=== PATIENT | male | born 1970 ===

== ENCOUNTER 2019-07-26 18:16 | Emergency (ER) | payer BC ==
[~2019-07-26] VITALS: Ht 175.3 cm; Wt 81.2 kg
[~2019-07-26 18:16] MED LIST: ALBU90OI INH; AMIT25; AMOCLA875 PO; AMOX500 PO; DOXY100 PO; FLUT.05NI; HYDACE5 PO; HYDGUAL120 PO; IBUP400 PO; IBUP800; NAPR550 PO; OXYACE5T PO; PENVK500 PO
[2019-07-26] MEDS ORDERED: Vitamin D2000 UNIT (20:25)
[2019-07-26] MEDS ORDERED: ASCO500 (20:25)
[2019-07-26] MEDS ORDERED: Vitamin B-121000 MCG (20:26)
== END 2019-07-26 22:29 | disposition home or self-care (01) ==
LOC: ER 18:16
DX: R09.89 Other specified symptoms and signs involving the circulatory and respiratory systems (principal); F17.200 Nicotine dependence, unspecified, uncomplicated
CPT/HCPCS: 99283

== ENCOUNTER 2024-08-17 07:36 | Emergency (ER) | payer OTHER, BC ==
[~2024-08-17] VITALS: Ht 175.3 cm; Wt 81.7 kg
[~2024-08-17 07:36] MED LIST changes: +ASCO500; +Vitamin B-121000 MCG; +Vitamin D2000 UNIT
[2024-08-17 07:52] VITALS: BP 132/93
[2024-08-17] MEDS ORDERED: Fluorescein Sod 1MG Opth Strips BOTHEYES ONE (08:00)
[2024-08-17] MEDS ORDERED: Tetracaine HCl/Pf 0.5% Opth Soln 4 ml LEFTEYE ONE (08:00)
[2024-08-17] MEDS ORDERED: Ofloxacin 0.3% Opth Soln 5 ML LEFTEYE ONE (09:00)
[2024-08-17] MEDS ORDERED: Diphth,Pertuss(Acell),Tet Vac 0.5 ML VIAL IM ONE (09:00)
[2024-08-17] MEDS ORDERED: Erythromycin 0.5% Opth Oint 1 gm LEFTEYE ONE (09:15)
== END 2024-08-17 09:31 | disposition home or self-care (01) ==
LOC: ER 07:36
DX: T15.02XA Foreign body in cornea, left eye, initial encounter (principal); F17.200 Nicotine dependence, unspecified, uncomplicated
CPT/HCPCS: 65222; 90471; 90715; 99283-25; A9270